=== PATIENT | female | born 1955 | race Caucasian/White ===

== ENCOUNTER → 2024-10-12 09:03 | Outpatient (REF) | payer BC, SELFPAY | LOC: HWRCS 09:03 | PROVIDERS: ATTENDING PHYSICIAN Internal Medicine Cardiovascular Disease; FAMILY PHYSICIAN Internal Medicine | DX: I10 Essential (primary) hypertension (principal); R07.89 Other chest pain | CPT/HCPCS: 93306 ==

== ENCOUNTER → 2024-10-13 07:44 | Outpatient (REF) | payer BC, SELFPAY | LOC: DHCBC/DCA 07:44 | PROVIDERS: ATTENDING PHYSICIAN Internal Medicine Cardiovascular Disease; FAMILY PHYSICIAN Internal Medicine | DX: I10 Essential (primary) hypertension (principal); R07.89 Other chest pain | CPT/HCPCS: 78452; 93017; A9500; J2785 ==